=== PATIENT | female | born 1970 | race Caucasian/White ===

== ENCOUNTER 2017-08-22 10:59 | Day surgery (SDC) | payer OTHER ==
[2017-08-15 16:02] VITALS: BMI 48.6
[~2017-08-22 10:59] MED LIST: LACTATED RINGERS 1,000 ML IV ONE; LIDOCAINE 1% 20 ML VIAL (10MG/ML) FOR IV START INTRADERMA PRN
[2017-08-22 11:54] VITALS: TEMP 98.2
[2017-08-22] MEDS ORDERED: LIDOCAINE 1% INJ 10MG/ML (20 ML MDV) ONE (12:09)
[2017-08-22] MEDS ORDERED: PROPOFOL 10 MG/ML 20 ML VIAL IV ONE (12:09)
--- NOTE | 2017-08-22 12:11 | P.GSHP ---
History of Present Illness H&P Date: 08/22/17 Chief Complaint: History of colon cancer This is a 41-year-old female with a previous history of colon cancer. Patient had a partial colectomy approximately 7 years ago. Patient denies a significant GI complaints. She's had no rectal bleeding. Past Medical History Past Medical History: Cancer, Thyroid Disorder Additional Past Medical History / Comment(s): DX. AT AGE 39 WITH OVARIAN CANCER which progressed to colon and LEFT LUNG, Possible sleep apnea, colon polyps. History of Any Multi-Drug Resistant Organisms: None Reported Past Surgical History: Appendectomy, Bowel Resection, Tubal Ligation Additional Past Surgical History / Comment(s): BILATERAL CATARACTS, BILATERAL OOPHERECTOMY,LOWER LOBE LEFT LUNG REMOVED, COLONOSCOPY. Past Anesthesia/Blood Transfusion Reactions: No Reported Reaction Smoking Status: Former smoker - Past Family History Mother Family Medical History: Coronary Artery Disease (CAD), Diabetes Mellitus Medications and Allergies Home Medications Medication Instructions Recorded Confirmed Type Levothyroxine Sodium [Synthroid] 25 mcg PO DAILY 08/15/17 08/22/17 History Allergies Allergy/AdvReac Type Severity Reaction Status Date / Time No Known Allergies Allergy Verified 08/22/17 11:54 Surgical - Exam Vital Signs Temp Pulse Resp BP Pulse Ox 98.2 F 85 16 126/74 97 08/22/17 11:53 08/22/17 11:53 08/22/17 11:53 08/22/17 11:53 08/22/17 11:53 - General well developed, no distress - Eyes PERRL - ENT normal pinna, normal mucosa - Neck no masses - Respiratory normal expansion - Cardiovascular Rhythm: regular - Abdomen Abdomen: soft, non tender Assessment and Plan Assessment: History of colon cancer. We will perform colonoscopy.
--- NOTE | 2017-08-22 12:22 | P.OP ---
Date of Procedure: 08/22/17 Preoperative Diagnosis: History of colon cancer Postoperative Diagnosis: Internal hemorrhoids Normal colon status post low anterior resection Procedure(s) Performed: Colonoscopy Anesthesia: MAC Surgeon: Edison Blanco Pathology: none sent Condition: stable Disposition: PACU Description of Procedure: Patient's placed on the endoscopy table in the lateral position. She received IV sedation. Digital rectal exam was performed there were internal hemorrhoids noted. The flexible colonoscope was then placed patient anus and passed throughout the entire colon. The ileocecal valve was visualized. The cecum, ascending and transverse colon appeared normal. The scope was then brought back to the descending colon and this appeared normal. The patient a previous low anterior section. The colonic anastomosis was visualized. There is known to any tumor or stricture of the anastomotic site. The scope was then brought back the rectum and this appeared normal. Scope was withdrawn for patient. Internal hemorrhoids are noted at the anus again.
[2017-08-22 12:42] VITALS: RESP 16
[2017-08-22 12:58] VITALS: BP 136/80; PULSE 68
== END 2017-08-22 13:09 | disposition home or self-care (01) ==
LOC: ORWHC2ENDO 10:59
PROVIDERS: ATTEND Surgery
DX: Z12.11 Encounter for screening for malignant neoplasm of colon (principal); K64.8 Other hemorrhoids; E07.9 Disorder of thyroid, unspecified; G47.33 Obstructive sleep apnea (adult) (pediatric); E66.9 Obesity, unspecified; Z68.42 Body mass index [BMI] 45.0-49.9, adult; Z85.038 Personal history of other malignant neoplasm of large intestine; Z86.010 Personal history of colon polyps; Z85.43 Personal history of malignant neoplasm of ovary; Z85.118 Personal history of other malignant neoplasm of bronchus and lung; Z87.891 Personal history of nicotine dependence; Z79.899 Other long term (current) drug therapy; Z98.0 Intestinal bypass and anastomosis status; Z90.49 Acquired absence of other specified parts of digestive tract; Z90.722 Acquired absence of ovaries, bilateral; Z90.2 Acquired absence of lung [part of]; Z82.49 Family history of ischemic heart disease and other diseases of the circulatory system; Z83.3 Family history of diabetes mellitus
CPT/HCPCS: G0105; J2001; J2704; 45378

== ENCOUNTER → 2018-09-28 | Outpatient (CLI) | payer OTHER ==
--- NOTE | 2018-10-01 10:39 | MM ---
Reason for exam: screening (asymptomatic). Last mammogram was performed 1 year and 2 months ago. History: Patient is postmenopausal, has history of other cancer at age 41, has history of colon cancer at age 39, and is nulliparous. Family history of breast cancer in maternal aunt at age 45. Physical Findings: A clinical breast exam by your physician is recommended on an annual basis and results should be correlated with mammographic findings. MG 3D Screening Mammo W/Cad Bilateral CC and MLO view(s) were taken. Prior study comparison: July 31, 2017, bilateral MG screening mammo w CAD. January 03, 2015, bilateral MG diagnostic mammo w CAD [facility]A. There are scattered fibroglandular densities. There is no discrete abnormality. No significant changes when compared with prior studies. ASSESSMENT: Negative, BI-RAD 1 RECOMMENDATION: Routine screening mammogram of both breasts in 1 year.
== END | disposition home or self-care (01) ==
LOC: RADMAMWWP 07:32
PROVIDERS: ATTEND Family Medicine
DX: Z12.31 Encounter for screening mammogram for malignant neoplasm of breast (principal)
CPT/HCPCS: 77063; 77067

== ENCOUNTER 2019-02-01 20:45 | Emergency (ER) | payer OTHER ==
[2019-02-01 20:51] VITALS: RESP 16; TEMP 97.6
[2019-02-01] MEDS ORDERED: SODIUM CHLORIDE 0.9% 500 ML 500 ML IV STA (21:16)
--- NOTE | 2019-02-01 21:18 | ED ---
General Adult HPI - General Chief complaint: Dizziness Stated complaint: Prolonged Dizziness Time Seen by Provider: 02/01/19 20:53 Source: patient Mode of arrival: wheelchair Limitations: no limitations - History of Present Illness Initial comments: Dictation was produced using [employer] dictation software. please excuse any grammatical, word or spelling errors. Chief Complaint: 49-year-old female presents with postprandial dizziness. History of Present Illness: Patient is a 41-year-old female she presents today with 2 episodes of postprandial dizziness. Patient states last night she had some enchiladas felt dizzy. She went to bed woke up feeling well. Tonight she had the same meal was yesterday possibly to 3 hours prior to arrival. She states several minutes after finishing her meal she began feeling dizzy. States that if she feels like she was distended feels like she will pass out. Patient denies any abdominal symptoms. No vomiting. Denies any diarrhea. Denies any constitutional symptoms. The ROS documented in this emergency department record has been reviewed and confirmed by me. Those systems with pertinent positive or negative responses have been documented in the HPI. All other systems are other negative and/or noncontributory. PHYSICAL EXAM: General Impression: Alert and oriented x3, not in acute distress HEENT: Normocephalic atraumatic, extra-ocular movements intact, pupils equal and reactive to light bilaterally, mucous membranes moist. Cardiovascular: Heart regular rate and rhythm, S1&S2 audible, no murmurs, rubs or gallops Chest: Lungs clear to auscultation bilaterally, no rhonchi, no wheeze, no rales Abdomen: Bowel sounds present, abdomen soft, non-tender, non-distended, no organomegaly Musculoskeletal: Pulses present and equal in all extremities, no peripheral edema Motor: no focal deficits noted Neurological: CN II-XII grossly intact, no focal motor or sensory deficits noted Skin: Intact with no visualized rashes Psych: Normal affect and mood ED course: 49-year-old female presents chief complaint of dizziness. It appears to be followed by eating. As upon arrival are within acceptable limits. Laboratory evaluation obtained. Mild leukocytosis of 13.3 likely secondary to stress. Coag panel unremarkable. Metabolic panel is unremarkable. Cardiac enzymes negative. Urinalysis is negative. Patient given Zofran with improvement of symptoms. Patient states she is no longer dizzy after Zofran administration. Patient given by mouth Zofran to go home with. She is advised to follow-up with outpatient primary care physician for management and further evaluation of symptoms. Patient clear for discharge. She is given prescription for Zofran ODT. EKG interpretation: Ventricular rate 83, normal sinus rhythm, IA interval 162, care 76, QTC 432. No IA prolongation, no QTC prolongation, no ST or T-wave changes noted. Overall, this EKG is unremarkable - Related Data Home Medications Medication Instructions Recorded Confirmed Levothyroxine Sodium [Synthroid] 25 mcg PO DAILY 08/15/17 02/01/19 Escitalopram [Lexapro] 20 mg PO DAILY 02/01/19 02/01/19 [place]-3 Fatty Acids/Fish Oil [Fish 1 cap PO DAILY 02/01/19 02/01/19 Oil 1,000 mg Softgel] metFORMIN HCL [Glucophage] 500 mg PO BID 02/01/19 02/01/19 Previous Rx's Medication Instructions Recorded Ondansetron Odt [Zofran Odt] 4 mg PO Q8HR PRN #12 tab 02/01/19 Allergies Allergy/AdvReac Type Severity Reaction Status Date / Time No Known Allergies Allergy Verified 02/01/19 21:54 Review of Systems ROS Statement: Those systems with pertinent positive or pertinent negative responses have been documented in the HPI. ROS Other: All systems not noted in ROS Statement are negative. Past Medical History Past Medical History: Cancer, Diabetes Mellitus, Thyroid Disorder Additional Past Medical History / Comment(s): DX. AT AGE 39 WITH OVARIAN CANCER which progressed to colon and LEFT LUNG, Possible sleep apnea, colon polyps. History of Any Multi-Drug Resistant Organisms: None Reported Past Surgical History: Appendectomy, Bowel Resection, Tubal Ligation Additional Past Surgical History / Comment(s): BILATERAL CATARACTS, BILATERAL OOPHERECTOMY,LOWER LOBE LEFT LUNG REMOVED, COLONOSCOPY. Past Anesthesia/Blood Transfusion Reactions: No Reported Reaction Past Psychological History: No Psychological Hx Reported Smoking Status: Former smoker Past Alcohol Use History: None Reported Past Drug Use History: None Reported - Past Family History Mother Family Medical History: Coronary Artery Disease (CAD), Diabetes Mellitus General Exam Limitations: no limitations Course Vital Signs 02/01/19 02/01/19 02/01/19 20:46 22:06 22:50 Temperature 97.6 F Pulse Rate 84 89 81 Respiratory 16 16 16 Rate Blood Pressure 135/92 137/89 137/89 O2 Sat by Pulse 97 95 95 Oximetry Medical Decision Making - Lab Data Result diagrams: 02/01/19 21:38 02/01/19 21:38 Lab Results 02/01/19 02/01/19 02/01/19 Range/Units 21:38 21:38 21:38 WBC 13.3 H (3.8-10.6) k/uL RBC 4.74 (3.80-5.40) m/uL Hgb 13.4 (11.4-16.0) gm/dL Hct 40.7 (34.0-46.0) % MCV 86.0 (80.0-100.0) fL MCH 28.3 (25.0-35.0) pg MCHC 32.9 (31.0-37.0) g/dL RDW 13.7 (11.5-15.5) % Plt Count 326 (150-450) k/uL Neutrophils % 68 % Lymphocytes % 25 % Monocytes % 4 % Eosinophils % 1 % Basophils % 1 % Neutrophils # 9.0 H (1.3-7.7) k/uL Lymphocytes # 3.3 (1.0-4.8) k/uL Monocytes # 0.6 (0-1.0) k/uL Eosinophils # 0.2 (0-0.7) k/uL Basophils # 0.1 (0-0.2) k/uL PT 9.7 (9.0-12.0) sec INR 0.9 (<1.2) Sodium 139 (137-145) mmol/L Potassium 4.4 (3.5-5.1) mmol/L Chloride 102 (98-107) mmol/L Carbon Dioxide 27 (22-30) mmol/L Anion Gap 10 mmol/L BUN 20 H (7-17) mg/dL Creatinine 1.47 H (0.52-1.04) mg/dL Est GFR (CKD-EPI)AfAm 48 (>60 ml/min/1.73 sqM) Est GFR (CKD-EPI)NonAf 42 (>60 ml/min/1.73 sqM) Glucose 109 H (74-99) mg/dL Calcium 10.0 (8.4-10.2) mg/dL Total Bilirubin 0.4 (0.2-1.3) mg/dL AST 28 (14-36) U/L ALT 35 (9-52) U/L Alkaline Phosphatase 100 (38-126) U/L Troponin I (0.000-0.034) ng/mL Total Protein 7.5 (6.3-8.2) g/dL Albumin 4.6 (3.5-5.0) g/dL Urine Color Urine Appearance (Clear) Urine pH (5.0-8.0) Ur Specific [place] (1.001-1.035) Urine Protein (Negative) Urine Glucose (UA) (Negative) Urine Ketones (Negative) Urine Blood (Negative) Urine Nitrite (Negative) Urine Bilirubin (Negative) Urine Urobilinogen (<2.0) mg/dL Ur Leukocyte Esterase (Negative) 02/01/19 02/01/19 Range/Units 21:38 22:05 WBC (3.8-10.6) k/uL RBC (3.80-5.40) m/uL Hgb (11.4-16.0) gm/dL Hct (34.0-46.0) % MCV (80.0-100.0) fL MCH (25.0-35.0) pg MCHC (31.0-37.0) g/dL RDW (11.5-15.5) % Plt Count (150-450) k/uL Neutrophils % % Lymphocytes % % Monocytes % % Eosinophils % % Basophils % % Neutrophils # (1.3-7.7) k/uL Lymphocytes # (1.0-4.8) k/uL Monocytes # (0-1.0) k/uL Eosinophils # (0-0.7) k/uL Basophils # (0-0.2) k/uL PT (9.0-12.0) sec INR (<1.2) Sodium (137-145) mmol/L Potassium (3.5-5.1) mmol/L Chloride (98-107) mmol/L Carbon Dioxide (22-30) mmol/L Anion Gap mmol/L BUN (7-17) mg/dL Creatinine (0.52-1.04) mg/dL Est GFR (CKD-EPI)AfAm (>60 ml/min/1.73 sqM) Est GFR (CKD-EPI)NonAf (>60 ml/min/1.73 sqM) Glucose (74-99) mg/dL Calcium (8.4-10.2) mg/dL Total Bilirubin (0.2-1.3) mg/dL AST (14-36) U/L ALT (9-52) U/L Alkaline Phosphatase (38-126) U/L Troponin I <0.012 (0.000-0.034) ng/mL Total Protein (6.3-8.2) g/dL Albumin (3.5-5.0) g/dL Urine Color Light Yellow Urine Appearance Clear (Clear) Urine pH 5.5 (5.0-8.0) Ur Specific [place] 1.010 (1.001-1.035) Urine Protein Negative (Negative) Urine Glucose (UA) Negative (Negative) Urine Ketones Negative (Negative) Urine Blood Negative (Negative) Urine Nitrite Negative (Negative) Urine Bilirubin Negative (Negative) Urine Urobilinogen <2.0 (<2.0) mg/dL Ur Leukocyte Esterase Negative (Negative) Disposition Clinical Impression: Dizziness Disposition: HOME SELF-CARE Condition: Good Instructions (If sedation given, give patient instructions): Dizziness (ED) Prescriptions: Ondansetron Odt [Zofran Odt] 4 mg PO Q8HR PRN #12 tab PRN Reason: Nausea Is patient prescribed a controlled substance at d/c from ED?: No Referrals: Jesse Baker DO [Primary Care Provider] - 1-2 days Time of Disposition: 23:32
[2019-02-01 21:51] LABS: Basophils # (A) 0.1 k/uL (0-0.2); Basophils % (A) 1 %; Eosinophils # (A) 0.2 k/uL (0-0.7); Eosinophils % (A) 1 %; HCT 40.7 % (34.0-46.0); HGB 13.4 gm/dL (11.4-16.0); Lymphocytes # (A) 3.3 k/uL (1.0-4.8); Lymphocytes % (A) 25 %; MCH 28.3 pg (25.0-35.0); MCHC 32.9 g/dL (31.0-37.0); Mean Platelet Volume 6.8; Monocytes # (A) 0.6 k/uL (0-1.0); Monocytes % (A) 4 %; Neutrophils % (A) 68 %; Platelet Count 326 k/uL (150-450); RBC 4.74 m/uL (3.80-5.40); RDW 13.7 % (11.5-15.5); WBC 13.3 k/uL (3.8-10.6)
[2019-02-01 21:58] LABS: Albumin 4.6 g/dL (3.5-5.0); Potassium 4.4 mmol/L (3.5-5.1); Total Bilirubin 0.4 mg/dL (0.2-1.3); Total Protein 7.5 g/dL (6.3-8.2)
[2019-02-01] MEDS: ONDANSETRON 4 MG/2 ML VIAL IVP STA ×2 (22:04→22:49)
[2019-02-01 22:11] LABS: INR 0.9 (<1.2); Prothrombin Time 9.7 sec (9.0-12.0)
[2019-02-01 22:12] LABS: Appearance,Urine Clear (Clear); Bilirubin,Urine Negative (Negative); Blood,Urine Negative (Negative); Color,Urine Light Yellow; Glucose,Urine (UA) Negative (Negative); Ketones,Urine Negative (Negative); Leukocyte Esterase,Urine Negative (Negative); Nitrite,Urine Negative (Negative); PH, Urine 5.5 (5.0-8.0); Protein,Urine Negative (Negative); Urobilinogen,Urine <2.0 mg/dL (<2.0)
[2019-02-01 23:48] VITALS: BP 126/91; PULSE 83
== END 2019-02-01 23:49 | disposition home or self-care (01) ==
LOC: EC 20:45
DX: D72.829 Elevated white blood cell count, unspecified (principal); E11.9 Type 2 diabetes mellitus without complications; E07.9 Disorder of thyroid, unspecified; Z85.43 Personal history of malignant neoplasm of ovary; Z87.891 Personal history of nicotine dependence; Z79.890 Hormone replacement therapy; Z79.84 Long term (current) use of oral hypoglycemic drugs; Z79.899 Other long term (current) drug therapy
CPT/HCPCS: 36415; 93005; 80053; 84484; 85025; 85610; 81003; 99284; 96374; 96361; J2405

== ENCOUNTER → 2019-03-11 | Outpatient (CLI) | payer OTHER ==
--- NOTE | 2019-03-11 13:24 | XR ---
EXAMINATION TYPE: XR chest 2V DATE OF EXAM: 03/11/2019 COMPARISON: 06/24/2013 INDICATION: Cough R05 TECHNIQUE: Frontal and lateral views of the chest are obtained. FINDINGS: The heart size is normal. The pulmonary vasculature is normal. The lungs are clear. IMPRESSION: 1. No acute pulmonary process.
== END | disposition home or self-care (01) ==
LOC: RADXRMAIN 09:21
PROVIDERS: ATTEND Family Medicine
DX: R05 Cough (principal)
CPT/HCPCS: 71046

== ENCOUNTER 2019-10-15 11:20 | Emergency (ER) | payer OTHER ==
[2019-10-15] MEDS ORDERED: KETOROLAC 30 MG/ML 1 ML VIAL IVP STA (11:55)
[2019-10-15] MEDS ORDERED: SODIUM CHLORIDE 0.9% 500 ML 500 ML IV STA (11:55)
--- NOTE | 2019-10-15 12:01 | ED ---
General Adult HPI - General Chief complaint: Back Pain/Injury Stated complaint: back pain Time Seen by Provider: 10/15/19 11:42 Source: patient, RN notes reviewed Mode of arrival: ambulatory Limitations: no limitations - History of Present Illness Initial comments: Patient is a pleasant 49-year-old female presenting to the emergency Department with complaints of low back pain. Onset of symptoms was yesterday around 4 PM while sitting at her desk. Onset was sudden. Discomfort is left lower back. Discomfort does not radiate. No abdominal discomfort. Minimal nausea. Patient states discomfort is positional and discomfort greatly increases with position changes. No history of similar symptoms previously. No constipation or diarrhea. No fevers. Patient did try Aleve and muscle relaxer without much improvement of symptoms. - Related Data Home Medications Medication Instructions Recorded Confirmed Levothyroxine Sodium [Synthroid] 25 mcg PO DAILY 08/15/17 02/01/19 Escitalopram [Lexapro] 20 mg PO DAILY 02/01/19 02/01/19 [place]-3 Fatty Acids/Fish Oil [Fish 1 cap PO DAILY 02/01/19 02/01/19 Oil 1,000 mg Softgel] metFORMIN HCL [Glucophage] 500 mg PO BID 02/01/19 02/01/19 Previous Rx's Medication Instructions Recorded Ondansetron Odt [Zofran Odt] 4 mg PO Q8HR PRN #12 tab 02/01/19 predniSONE 20 mg PO BID #10 tab 10/15/19 Allergies Allergy/AdvReac Type Severity Reaction Status Date / Time No Known Allergies Allergy Verified 02/01/19 21:54 Review of Systems ROS Statement: Those systems with pertinent positive or pertinent negative responses have been documented in the HPI. ROS Other: All systems not noted in ROS Statement are negative. Constitutional: Denies: fever Eyes: Denies: eye pain ENT: Denies: ear pain Respiratory: Denies: cough Cardiovascular: Denies: chest pain Endocrine: Denies: fatigue Gastrointestinal: Reports: nausea. Denies: abdominal pain, vomiting Genitourinary: Denies: dysuria Musculoskeletal: Reports: as per HPI, back pain Skin: Denies: rash Neurological: Denies: weakness Past Medical History Past Medical History: Cancer, Diabetes Mellitus, Thyroid Disorder Additional Past Medical History / Comment(s): DX. AT AGE 39 WITH OVARIAN CANCER which progressed to colon and LEFT LUNG, Possible sleep apnea, colon polyps. History of Any Multi-Drug Resistant Organisms: None Reported Past Surgical History: Appendectomy, Bowel Resection, Tubal Ligation Additional Past Surgical History / Comment(s): BILATERAL CATARACTS, BILATERAL OOPHERECTOMY,LOWER LOBE LEFT LUNG REMOVED, COLONOSCOPY. Past Anesthesia/Blood Transfusion Reactions: No Reported Reaction Past Psychological History: No Psychological Hx Reported Smoking Status: Former smoker Past Alcohol Use History: None Reported Past Drug Use History: None Reported - Past Family History Mother Family Medical History: Coronary Artery Disease (CAD), Diabetes Mellitus General Exam Limitations: no limitations General appearance: alert, in no apparent distress Head exam: Present: normocephalic Eye exam: Present: normal appearance Neck exam: Present: normal inspection. Absent: tenderness Respiratory exam: Present: normal lung sounds bilaterally Cardiovascular Exam: Present: regular rate, normal rhythm Expanded Peripheral pulses: 2+: Radial (R), Radial (L), Femoral (R), Femoral (L), Posterior Tibialis (R), Posterior Tibialis (L), Dorsalis Pedis (R), Dorsalis Pedis (L) GI/Abdominal exam: Present: soft, normal bowel sounds. Absent: distended, tenderness, guarding, rebound, rigid, pulsatile mass Extremities exam: Present: normal inspection, other (Straight leg raise positive on the right at 30. State leg raise positive on the left with toe flexion around 60.) Back exam: Present: tenderness (Left paraLumbar region approximately L2-L3) Neurological exam: Present: alert. Absent: motor sensory deficit Expanded Sensory exam: Lower Extremity Light Touch: Normal Motor strength exam: RLE: 5, LLE: 5 Psychiatric exam: Present: normal affect, normal mood Skin exam: Present: normal color Course Vital Signs 10/15/19 10/15/19 11:26 12:11 Temperature 97.8 F Pulse Rate 85 68 Respiratory 18 18 Rate Blood Pressure 135/111 144/83 O2 Sat by Pulse 97 97 Oximetry Medical Decision Making - Medical Decision Making Patient reevaluated and feeling much better. Patient updated on results and need for follow-up. - Lab Data Result diagrams: 10/15/19 11:50 10/15/19 11:50 Lab Results 10/15/19 10/15/19 10/15/19 Range/Units 11:50 11:50 13:25 WBC 9.6 (3.8-10.6) k/uL RBC 4.65 (3.80-5.40) m/uL Hgb 13.6 (11.4-16.0) gm/dL Hct 40.6 (34.0-46.0) % MCV 87.2 (80.0-100.0) fL MCH 29.2 (25.0-35.0) pg MCHC 33.5 (31.0-37.0) g/dL RDW 14.3 (11.5-15.5) % Plt Count 333 (150-450) k/uL Neutrophils % 70 % Lymphocytes % 21 % Monocytes % 4 % Eosinophils % 2 % Basophils % 1 % Neutrophils # 6.7 (1.3-7.7) k/uL Lymphocytes # 2.1 (1.0-4.8) k/uL Monocytes # 0.4 (0-1.0) k/uL Eosinophils # 0.1 (0-0.7) k/uL Basophils # 0.1 (0-0.2) k/uL Sodium 139 (137-145) mmol/L Potassium 4.7 (3.5-5.1) mmol/L Chloride 104 (98-107) mmol/L Carbon Dioxide 26 (22-30) mmol/L Anion Gap 9 mmol/L BUN 18 H (7-17) mg/dL Creatinine 0.66 (0.52-1.04) mg/dL Est GFR (CKD-EPI)AfAm >90 (>60 ml/min/1.73 sqM) Est GFR (CKD-EPI)NonAf >90 (>60 ml/min/1.73 sqM) Glucose 161 H (74-99) mg/dL Calcium 9.5 (8.4-10.2) mg/dL Total Bilirubin 0.5 (0.2-1.3) mg/dL AST 41 H (14-36) U/L ALT 39 H (4-34) U/L Alkaline Phosphatase 103 (38-126) U/L Total Protein 7.3 (6.3-8.2) g/dL Albumin 4.3 (3.5-5.0) g/dL Amylase 63 (30-110) U/L Lipase 382 H (23-300) U/L Urine Color Yellow Urine Appearance Clear (Clear) Urine pH 6.0 (5.0-8.0) Ur Specific [place] 1.021 (1.001-1.035) Urine Protein Negative (Negative) Urine Glucose (UA) Negative (Negative) Urine Ketones Negative (Negative) Urine Blood Negative (Negative) Urine Nitrite Negative (Negative) Urine Bilirubin Negative (Negative) Urine Urobilinogen <2.0 (<2.0) mg/dL Ur Leukocyte Esterase Negative (Negative) - Radiology Data Radiology results: report reviewed (Ultrasound shows normal aorta), image reviewed (Lumbar spine x-ray shows normal lumbar spine. Cholelithiasis.) Disposition Clinical Impression: Low back pain Disposition: HOME SELF-CARE Condition: Stable Instructions (If sedation given, give patient instructions): Acute Low Back Pain (ED) Additional Instructions: Please follow-up with primary care physician in the next couple days for recheck. Return for weakness, loss of control of bowel or bladder, worsening s ymptoms or other concerns. Prescription sent to [email or web address] pharmacy Prescriptions: predniSONE 20 mg PO BID #10 tab Is patient prescribed a controlled substance at d/c from ED?: No Referrals: Jesse Baker DO [Primary Care Provider] - 1-2 days Time of Disposition: 14:25
[2019-10-15 12:18] LABS: Basophils # (A) 0.1 k/uL (0-0.2); Basophils % (A) 1 %; Eosinophils # (A) 0.1 k/uL (0-0.7); Eosinophils % (A) 2 %; HCT 40.6 % (34.0-46.0); HGB 13.6 gm/dL (11.4-16.0); Lymphocytes # (A) 2.1 k/uL (1.0-4.8); Lymphocytes % (A) 21 %; MCH 29.2 pg (25.0-35.0); MCHC 33.5 g/dL (31.0-37.0); MCV 87.2 fL (80.0-100.0); Mean Platelet Volume 9.3; Monocytes # (A) 0.4 k/uL (0-1.0); Monocytes % (A) 4 %; Neutrophils # (A) 6.7 k/uL (1.3-7.7); Neutrophils % (A) 70 %; Platelet Count 333 k/uL (150-450); RBC 4.65 m/uL (3.80-5.40); RDW 14.3 % (11.5-15.5); WBC 9.6 k/uL (3.8-10.6)
[2019-10-15 12:30] LABS: ALT 39 U/L (4-34); AST 41 U/L (14-36); African American GFR (CKD) >90 (>60 ml/min/1.73 sqM); Albumin 4.3 g/dL (3.5-5.0); Alkaline Phosphatase 103 U/L (38-126); Amylase 63 U/L (30-110); Anion Gap 9 mmol/L; Blood Urea Nitrogen 18 mg/dL (7-17); Calcium 9.5 mg/dL (8.4-10.2); Carbon Dioxide 26 mmol/L (22-30); Chloride 104 mmol/L (98-107); Glucose 161 mg/dL (74-99); Non-African American GFR(CKD) >90 (>60 ml/min/1.73 sqM); Potassium 4.7 mmol/L (3.5-5.1); Sodium 139 mmol/L (137-145); Total Bilirubin 0.5 mg/dL (0.2-1.3); Total Protein 7.3 g/dL (6.3-8.2)
[2019-10-15] MEDS ORDERED: HYDROmorphone 1 MG/ML 1 ML SYRINGE IVP STA (12:41)
--- NOTE | 2019-10-15 12:53 | XR ---
EXAMINATION TYPE: XR lumbosacral spine min 4V DATE OF EXAM: 10/15/2019 COMPARISON: None HISTORY: Low back pain TECHNIQUE: Five-view lumbar spine FINDINGS: Incidental note is made of cholelithiasis. There 5 lumbar-type vertebral bodies. Pedicles are intact. Disc heights are preserved. Vertebral body heights are preserved. Alignment is normal. No spondylolytic defects are evident. IMPRESSION: 1. Normal lumbar spine. 2. Cholelithiasis
--- NOTE | 2019-10-15 13:14 | US ---
EXAMINATION TYPE: US duplex aorta DATE OF EXAM: 10/15/2019 COMPARISON: NONE CLINICAL HISTORY: Low back pain, evaluate aorta. pain EXAM MEASUREMENTS: Abdominal Aorta: Proximal: 1.9 cm Mid: 1.6 cm Distal: 1.5 cm Bifurcation: Obscured by bowel gas. IMPRESSION: 1. Abdominal aorta appears unremarkable as visualized.
[2019-10-15 14:08] LABS: Appearance,Urine Clear (Clear); Bilirubin,Urine Negative (Negative); Blood,Urine Negative (Negative); Color,Urine Yellow; Glucose,Urine (UA) Negative (Negative); Ketones,Urine Negative (Negative); Leukocyte Esterase,Urine Negative (Negative); Nitrite,Urine Negative (Negative); Protein,Urine Negative (Negative); Specific Gravity,Urine 1.021 (1.001-1.035); Urobilinogen,Urine <2.0 mg/dL (<2.0)
[2019-10-15] MEDS ORDERED: ACET/COD 300 MG/30 MG STARTER PACK 6 TAB BTL PO STA (14:25)
[2019-10-15 14:29] VITALS: BP 140/82; PULSE 63; RESP 20; TEMP 98.6
== END 2019-10-15 14:42 | disposition home or self-care (01) ==
LOC: EC 11:20
DX: M54.5 Low back pain (principal); E11.9 Type 2 diabetes mellitus without complications; E07.9 Disorder of thyroid, unspecified; Z85.43 Personal history of malignant neoplasm of ovary; Z87.891 Personal history of nicotine dependence; Z79.890 Hormone replacement therapy; Z79.84 Long term (current) use of oral hypoglycemic drugs; Z79.899 Other long term (current) drug therapy
CPT/HCPCS: 36415; 80053; 82150; 83690; 85025; 81003; 72110; 93979; 99284; 96374; 96375; 96361; J1885; J1170

== ENCOUNTER 2019-10-19 01:06 | Emergency (ER) | payer OTHER ==
[2019-10-19 01:26] VITALS: TEMP 97.9
[2019-10-19] MEDS ORDERED: HYDROmorphone 0.5 MG/0.5 ML SYRINGE IVP STA (03:14)
[2019-10-19] MEDS ORDERED: SODIUM CHLORIDE 0.9% 500 ML 500 ML IV STA (03:14)
[2019-10-19 03:41] LABS: Basophils # (A) 0.1 k/uL (0-0.2); Basophils % (A) 0 %; Eosinophils # (A) 0.1 k/uL (0-0.7); Eosinophils % (A) 1 %; HGB 13.6 gm/dL (11.4-16.0); Lymphocytes # (A) 1.8 k/uL (1.0-4.8); Lymphocytes % (A) 9 %; MCH 27.8 pg (25.0-35.0); MCHC 32.2 g/dL (31.0-37.0); MCV 86.2 fL (80.0-100.0); Mean Platelet Volume 7.5; Monocytes % (A) 5 %; Neutrophils # (A) 16.3 k/uL (1.3-7.7); Neutrophils % (A) 84 %; Platelet Count 327 k/uL (150-450); RBC 4.88 m/uL (3.80-5.40); WBC 19.4 k/uL (3.8-10.6)
[2019-10-19 04:02] LABS: Appearance,Urine Clear (Clear); Bilirubin,Urine Negative (Negative); Blood,Urine Negative (Negative); Color,Urine Yellow; Glucose,Urine (UA) 3+ (Negative); Ketones,Urine Negative (Negative); Leukocyte Esterase,Urine Negative (Negative); Nitrite,Urine Negative (Negative); Protein,Urine Negative (Negative); Specific Gravity,Urine 1.029 (1.001-1.035); Urobilinogen,Urine <2.0 mg/dL (<2.0)
[2019-10-19 04:02] LABS: ALT 37 U/L (4-34); AST 30 U/L (14-36); African American GFR (CKD) >90 (>60 ml/min/1.73 sqM); Albumin 4.4 g/dL (3.5-5.0); Alkaline Phosphatase 104 U/L (38-126); Anion Gap 9 mmol/L; Blood Urea Nitrogen 25 mg/dL (7-17); Calcium 9.9 mg/dL (8.4-10.2); Carbon Dioxide 26 mmol/L (22-30); Chloride 103 mmol/L (98-107); Glucose 271 mg/dL (74-99); Non-African American GFR(CKD) >90 (>60 ml/min/1.73 sqM); Potassium 4.3 mmol/L (3.5-5.1); Sodium 138 mmol/L (137-145); Total Bilirubin 0.4 mg/dL (0.2-1.3); Total Protein 7.5 g/dL (6.3-8.2)
--- NOTE | 2019-10-19 04:09 | CT ---
EXAMINATION TYPE: CT abdomen pelvis wo con DATE OF EXAM: 10/19/2019 COMPARISON: 11/04/2013 HISTORY: Patient presents with left sided flank pain. CT DLP: 1870 mGycm Automated exposure control for dose reduction was used. Multiple axial sections were obtained from the diaphragm to the floor the pelvis with no contrast. Lung bases are clear of consolidation. There is mild subsegmental atelectasis left lung base. There i s no pericardial effusion. Heart size is normal. There is no pleural effusion. There is diffuse fatty infiltration of the liver. Liver is enlarged and measures 21.5 cm. Spleen is i ntact. There is no pancreatic mass. There is contracted gallbladder with 3 cm calcified gallstone. Bile ducts are not dilated. There is no adrenal mass. Kidneys have normal size. There is no hydroneph rosis. There is no retroperitoneal adenopathy. Bladder distends smoothly. There is no inguinal hernia . There is no free fluid in the pelvis. There is no evidence of a pelvic mass. Lumbar spine is intact . There is T11-12 posterior disc herniation with calcification. Bony pelvis is intact. There is appar ent surgery at the proximal sigmoid colon. Appendix is not definitely seen. There is no sign of thick ened appendix. There is no evidence of a bowel obstruction. There is no mesenteric edema. There is no ascites. IMPRESSION: Fatty infiltration of the liver. Large calcified gallstone increased in size compared to old CT scan. No sign of acute abdomen and pelvis. No renal stone or obstruction.
[2019-10-19] MEDS ORDERED: KETOROLAC 30 MG/ML 1 ML VIAL IVP STA (04:26)
[2019-10-19] MEDS ORDERED: DIAZEPAM 2 MG TAB PO STA (04:28)
[2019-10-19] MEDS ORDERED: DIAZEPAM 5 MG/ML 2 ML INJ IVP STA (04:37)
--- NOTE | 2019-10-19 04:38 | ED ---
General Adult HPI - General Chief complaint: Back Pain/Injury Stated complaint: Back Injury Time Seen by Provider: 10/19/19 02:51 Source: patient, RN notes reviewed, old records reviewed Mode of arrival: ambulatory Limitations: no limitations - History of Present Illness Initial comments: 49-year-old female patient presents to the chief complaint of left paralumbar back/flank pain. Patient reports that this initially started 4 days ago. She was seen in this emergency department where she had plain films and aortic ultrasounds are negative. Patient was discharged with steroids. Patient was pain initially started 4 days ago is at rest. Left paralumbar region. Patient reports that after discharge the pain improved somewhat. Patient reports that today she was standing on her feet all day. She sat down use the bathroom. The pain suddenly came back and. Lower. Patient reports that is her left lateral paralumbar region. Denies any history of kidney stones. Denies any reflux symptoms. Ambulatory without difficulty. Denies any paresthesias. Denies any saddle anesthesia or loss of bowel or bladder control. Systemic: Pt denies fatigue, fever/chills, rash. Pt denies weakness, night sweats, weight loss. Neuro: Pt denies headache, visual disturbances, syncope or pre-syncope. HEENT: Pt denies ocular discharge or irritation, otalgia, rhinorrhea, pharyngitis or notable lymphadenopathy. Cardiopulmonary: Pt denies chest pain, SOB, heart palpitations, dyspnea on exertion. Abdominal/GI: Pt denies abdominal pain, n/v/d. : Pt denies dysuria, burning w/ urination, frequency/urgency. Denies new onset urinary or bowel incontinence. MSK: Pt denies myalgia, loss of strength or function in extremities. Neuro: Pt denies new onset weakness, paresthesias. - Related Data Home Medications Medication Instructions Recorded Confirmed Levothyroxine Sodium [Synthroid] 25 mcg PO DAILY 08/15/17 02/01/19 Escitalopram [Lexapro] 20 mg PO DAILY 02/01/19 02/01/19 [place]-3 Fatty Acids/Fish Oil [Fish 1 cap PO DAILY 02/01/19 02/01/19 Oil 1,000 mg Softgel] metFORMIN HCL [Glucophage] 500 mg PO BID 02/01/19 02/01/19 Previous Rx's Medication Instructions Recorded Ondansetron Odt [Zofran Odt] 4 mg PO Q8HR PRN #12 tab 02/01/19 predniSONE 20 mg PO BID #10 tab 10/15/19 Cyclobenzaprine [Flexeril] 1 - 2 tab PO TID #20 tablet 10/19/19 Allergies Allergy/AdvReac Type Severity Reaction Status Date / Time No Known Allergies Allergy Verified 10/19/19 01:26 Review of Systems ROS Statement: Those systems with pertinent positive or pertinent negative responses have been documented in the HPI. ROS Other: All systems not noted in ROS Statement are negative. Past Medical History Past Medical History: Cancer, Diabetes Mellitus, Thyroid Disorder Additional Past Medical History / Comment(s): DX. AT AGE 39 WITH OVARIAN CANCER which progressed to colon and LEFT LUNG, Possible sleep apnea, colon polyps. History of Any Multi-Drug Resistant Organisms: None Reported Past Surgical History: Appendectomy, Bowel Resection, Tubal Ligation Additional Past Surgical History / Comment(s): BILATERAL CATARACTS, BILATERAL OOPHERECTOMY,LOWER LOBE LEFT LUNG REMOVED, COLONOSCOPY. Past Anesthesia/Blood Transfusion Reactions: No Reported Reaction Past Psychological History: No Psychological Hx Reported Smoking Status: Former smoker Past Alcohol Use History: None Reported Past Drug Use History: None Reported - Past Family History Mother Family Medical History: Coronary Artery Disease (CAD), Diabetes Mellitus General Exam - General Exam Comments Initial Comments: Constitutional: NAD, AOX3, Pt has pleasant affect. HEENT: NC/AT, trachea midline, neck supple, no lymphadenopathy. Posterior pharynx non erythematous, without exudates. External ears appear normal, without discharge. Mucous membranes moist. Eyes PERRLA, EOM intact. There is no scleral icterus. No pallor noted. Cardiopulmonary: RRR, no murmurs, rubs or gallops, no JVD noted. Lungs CTAB in anterior and posterior hirsch. No peripheral edema. Abdominal exam: Abdomen soft and non-distended. Abdomen non-tender to palpation in all 4 quadrants. Bowel sounds active in LLQ. No hepatosplenomegaly. No ecchymosis Neuro: CN II-XII grossly intact. No nuchal rigidity. No raccon eyes, no ignacio sign, no hemotympanum. No cervical spinal tenderness. MSK: Left paralumbar/lateral paralumbar region tender to palpation. Straight leg raise is negative. Heel to toe walking is intact. Sensation is intact. Lower extremity strength 5 out of 5. No posterior calf tenderness bilaterally, homans sign negative bilaterally. Posterior tibialis and radial pulse +2 bilaterally. Sensation intact in upper and lower extremities. Full active ROM in upper and lower extremities, 5/5 stregnth. Limitations: no limitations Course Vital Signs 10/19/19 01:24 Temperature 97.9 F Pulse Rate 89 Respiratory 20 Rate Blood Pressure 168/96 O2 Sat by Pulse 98 Oximetry Medical Decision Making - Medical Decision Making 49-year-old female patient presents to the chief complaint of paralumbar back pain. Ongoing for 4 days. Got worse today after urinating. Appears lower this time now per patient. Patient vital signs: Mild hypertension. Physical exam displayed: eft paralumbar/lateral paralumbar region tender to palpation. Straight leg raise is negative. Heel to toe walking is intact. Sensation is intact. Lower extremity strength 5 out of 5. Patient reports that she is unable to become comfortable. I did initially of high suspicion of kidney stone for this patient. Laboratory investigations were conducted which displayed a leukocytosis likely secondary to recent steroid usage. Glucose of 271. Urine displayed + glucose. A CT abdomen and pelvis without contrast was obtained for suspicion of ureteral calculi. This displayed that he filtration the liver. Large calcific also increased in size compared to old computed tomography scan. No psychiatric and pelvis, no renal stone obstruction. Did display a T11/T12 posterior disc herniation. I believe the patient is experiencing paralumbar back strain. Patient was discharged with outpatient primary care follow-up as well as orthopedic follow-up. Patient will continue to use steroids as directed from previous visit as well as anti-inflammatories muscle relaxers as needed. Will return to ER if condition worsens. Case discussed with Dr. Louie. - Lab Data Result diagrams: 10/19/19 03:29 10/19/19 03:29 Lab Results 10/19/19 10/19/19 10/19/19 Range/Units 03:23 03:29 03:29 WBC 19.4 H (3.8-10.6) k/uL RBC 4.88 (3.80-5.40) m/uL Hgb 13.6 (11.4-16.0) gm/dL Hct 42.0 (34.0-46.0) % MCV 86.2 (80.0-100.0) fL MCH 27.8 (25.0-35.0) pg MCHC 32.2 (31.0-37.0) g/dL RDW 13.0 (11.5-15.5) % Plt Count 327 (150-450) k/uL Neutrophils % 84 % Lymphocytes % 9 % Monocytes % 5 % Eosinophils % 1 % Basophils % 0 % Neutrophils # 16.3 H (1.3-7.7) k/uL Lymphocytes # 1.8 (1.0-4.8) k/uL Monocytes # 1.0 (0-1.0) k/uL Eosinophils # 0.1 (0-0.7) k/uL Basophils # 0.1 (0-0.2) k/uL Sodium 138 (137-145) mmol/L Potassium 4.3 (3.5-5.1) mmol/L Chloride 103 (98-107) mmol/L Carbon Dioxide 26 (22-30) mmol/L Anion Gap 9 mmol/L BUN 25 H (7-17) mg/dL Creatinine 0.69 (0.52-1.04) mg/dL Est GFR (CKD-EPI)AfAm >90 (>60 ml/min/1.73 sqM) Est GFR (CKD-EPI)NonAf >90 (>60 ml/min/1.73 sqM) Glucose 271 H (74-99) mg/dL Calcium 9.9 (8.4-10.2) mg/dL Total Bilirubin 0.4 (0.2-1.3) mg/dL AST 30 (14-36) U/L ALT 37 H (4-34) U/L Alkaline Phosphatase 104 (38-126) U/L Total Protein 7.5 (6.3-8.2) g/dL Albumin 4.4 (3.5-5.0) g/dL Urine Color Yellow Urine Appearance Clear (Clear) Urine pH 6.0 (5.0-8.0) Ur Specific [place] 1.029 (1.001-1.035) Urine Protein Negative (Negative) Urine Glucose (UA) 3+ H (Negative) Urine Ketones Negative (Negative) Urine Blood Negative (Negative) Urine Nitrite Negative (Negative) Urine Bilirubin Negative (Negative) Urine Urobilinogen <2.0 (<2.0) mg/dL Ur Leukocyte Esterase Negative (Negative) Disposition Clinical Impression: Lumbar back pain Disposition: HOME SELF-CARE Condition: Stable Instructions (If sedation given, give patient instructions): Acute Low Back Pain (ED) Additional Instructions: Follow-up with primary care provider and orthopedic consult tomorrow. Use muscle relaxers and anti-inflammatories as needed for discomfort. Return to ER if condition worsens in any way. Prescriptions: Cyclobenzaprine [Flexeril] 1 - 2 tab PO TID #20 tablet Is patient prescribed a controlled substance at d/c from ED?: No Referrals: Jesse Baker DO [Primary Care Provider] - 1-2 days
--- NOTE | 2019-10-19 04:49 | ED ---
Medical Decision Making - Lab Data Result diagrams: 10/19/19 03:29 10/19/19 03:29 Lab Results 10/19/19 10/19/19 10/19/19 Range/Units 03:23 03:29 03:29 WBC 19.4 H (3.8-10.6) k/uL RBC 4.88 (3.80-5.40) m/uL Hgb 13.6 (11.4-16.0) gm/dL Hct 42.0 (34.0-46.0) % MCV 86.2 (80.0-100.0) fL MCH 27.8 (25.0-35.0) pg MCHC 32.2 (31.0-37.0) g/dL RDW 13.0 (11.5-15.5) % Plt Count 327 (150-450) k/uL Neutrophils % 84 % Lymphocytes % 9 % Monocytes % 5 % Eosinophils % 1 % Basophils % 0 % Neutrophils # 16.3 H (1.3-7.7) k/uL Lymphocytes # 1.8 (1.0-4.8) k/uL Monocytes # 1.0 (0-1.0) k/uL Eosinophils # 0.1 (0-0.7) k/uL Basophils # 0.1 (0-0.2) k/uL Sodium 138 (137-145) mmol/L Potassium 4.3 (3.5-5.1) mmol/L Chloride 103 (98-107) mmol/L Carbon Dioxide 26 (22-30) mmol/L Anion Gap 9 mmol/L BUN 25 H (7-17) mg/dL Creatinine 0.69 (0.52-1.04) mg/dL Est GFR (CKD-EPI)AfAm >90 (>60 ml/min/1.73 sqM) Est GFR (CKD-EPI)NonAf >90 (>60 ml/min/1.73 sqM) Glucose 271 H (74-99) mg/dL Calcium 9.9 (8.4-10.2) mg/dL Total Bilirubin 0.4 (0.2-1.3) mg/dL AST 30 (14-36) U/L ALT 37 H (4-34) U/L Alkaline Phosphatase 104 (38-126) U/L Total Protein 7.5 (6.3-8.2) g/dL Albumin 4.4 (3.5-5.0) g/dL Urine Color Yellow Urine Appearance Clear (Clear) Urine pH 6.0 (5.0-8.0) Ur Specific [place] 1.029 (1.001-1.035) Urine Protein Negative (Negative) Urine Glucose (UA) 3+ H (Negative) Urine Ketones Negative (Negative) Urine Blood Negative (Negative) Urine Nitrite Negative (Negative) Urine Bilirubin Negative (Negative) Urine Urobilinogen <2.0 (<2.0) mg/dL Ur Leukocyte Esterase Negative (Negative) Disposition Clinical Impression: Lumbar back pain Disposition: HOME SELF-CARE Condition: Stable Instructions (If sedation given, give patient instructions): Acute Low Back Pain (ED) Additional Instructions: Follow-up with primary care provider and orthopedic consult tomorrow. Use muscle relaxers and anti-inflammatories as needed for discomfort. Return to ER if condition worsens in any way. Prescriptions: Cyclobenzaprine [Flexeril] 1 - 2 tab PO TID #20 tablet Is patient prescribed a controlled substance at d/c from ED?: No Referrals: Jesse Baker DO [Primary Care Provider] - 1-2 days Adelso Patterson MD [STAFF PHYSICIAN] - 1-2 days
[2019-10-19 06:17] VITALS: BP 144/85; PULSE 52; RESP 18
== END 2019-10-19 06:17 | disposition home or self-care (01) ==
LOC: EC 01:06
DX: S39.012A Strain of muscle, fascia and tendon of lower back, initial encounter (principal); I10 Essential (primary) hypertension; D72.829 Elevated white blood cell count, unspecified; K76.89 Other specified diseases of liver; M51.24 Other intervertebral disc displacement, thoracic region; E11.9 Type 2 diabetes mellitus without complications; E07.9 Disorder of thyroid, unspecified; Z87.891 Personal history of nicotine dependence; Z79.84 Long term (current) use of oral hypoglycemic drugs; Z79.890 Hormone replacement therapy; Z79.899 Other long term (current) drug therapy; Z85.43 Personal history of malignant neoplasm of ovary; Z85.038 Personal history of other malignant neoplasm of large intestine; Z85.118 Personal history of other malignant neoplasm of bronchus and lung; Z90.722 Acquired absence of ovaries, bilateral; Z90.49 Acquired absence of other specified parts of digestive tract; Z90.2 Acquired absence of lung [part of]; X50.1XXA Overexertion from prolonged static or awkward postures, initial encounter
CPT/HCPCS: 36415; 80053; 85025; 81003; 74176; 99284; 96374; 96375 ×2; 96361; J3360; J1885; J1170

== ENCOUNTER → 2019-10-25 | Outpatient (CLI) | payer OTHER | END | disposition home or self-care (01) | LOC: RADMRIMAIN 19:37 | PROVIDERS: ATTEND Nurse Practitioner Family | DX: Z53.9 Procedure and treatment not carried out, unspecified reason (principal) ==

== ENCOUNTER 2019-11-01 20:57 | Emergency (ER) | payer OTHER ==
[2019-11-01] MEDS ORDERED: DIAZEPAM 5 MG TAB PO STA (22:11)
[2019-11-01] MEDS ORDERED: KETOROLAC 30 MG/ML 1 ML VIAL IM STA (22:11)
--- NOTE | 2019-11-01 23:04 | ED ---
Back Pain [facility] - General Chief Complaint: Back Pain/Injury Stated Complaint: Back pain Time Seen by Provider: 11/01/19 21:10 Source: patient Limitations: no limitations - History of Present Illness Initial Comments: The patient is a 49-year-old female with past medical history of diabetes, ovarian cancer and thyroid disease presents emergency Department with reported back pain. This is the patient's third visit to the ER for the same complaint. She states she was originally at work when she ended up twisting and felt a pop in her low back. She reports to muscle spasms in the lumbar region which have been present since the . She originally came into the emergency department and had a lumbar x-ray as well as an abdominal ultrasound performed. Both of these tests were negative. She was discharged home with a prescription for [employer] own. She followed up in her primary care office. At this time they did provide her with anti-inflammatories. She and return to the ER on the . At that time they completed a CT of the patient's abdomen and pelvis looking for possible renal stone. He did see a herniated disc imaging at this time. The patient was discharged home with Flexeril. States that she took all the medications as directed and she is now out of medications. She states didn't really help her symptoms. She did have exacerbation of her pain today. States that she's been unable to work because it hurt so bad. She denies any radicular pain into lower extremities. Denies saddle anesthesia or bowel or bladder incontinence. No fevers or chills. Denies a history of IV drug use. Denies any weakness in her lower extremity. Has been able to ambulate without difficulty. States her pain is worse when she stands up straight. She does have an appointment with Dr. Bean tomorrow and is presenting to the emergency department for pain control tonight. She denies a concern for . There are no other alleviating, precipitating modifying factors - Related Data Home Medications Medication Instructions Recorded Confirmed Levothyroxine Sodium [Synthroid] 25 mcg PO DAILY 08/15/17 02/01/19 Escitalopram [Lexapro] 20 mg PO DAILY 02/01/19 02/01/19 [place]-3 Fatty Acids/Fish Oil [Fish 1 cap PO DAILY 02/01/19 02/01/19 Oil 1,000 mg Softgel] metFORMIN HCL [Glucophage] 500 mg PO BID 02/01/19 02/01/19 Previous Rx's Medication Instructions Recorded Ondansetron Odt [Zofran Odt] 4 mg PO Q8HR PRN #12 tab 02/01/19 predniSONE [Deltasone] 20 mg PO BID #10 tab 10/15/19 Cyclobenzaprine [Flexeril] 1 - 2 tab PO TID #20 tablet 10/19/19 Diazepam [Valium] 5 mg PO Q8HR PRN 3 Days #9 tab 11/01/19 Ketorolac [Toradol] 10 mg PO Q8HR #15 tab 11/01/19 Allergies Allergy/AdvReac Type Severity Reaction Status Date / Time No Known Allergies Allergy Verified 10/19/19 01:26 Review of Systems ROS Statement: Those systems with pertinent positive or pertinent negative responses have been documented in the HPI. ROS Other: All systems not noted in ROS Statement are negative. Past Medical History Past Medical History: Cancer, Diabetes Mellitus, Thyroid Disorder Additional Past Medical History / Comment(s): DX. AT AGE 39 WITH OVARIAN CANCER which progressed to colon and LEFT LUNG, Possible sleep apnea, colon polyps. History of Any Multi-Drug Resistant Organisms: None Reported Past Surgical History: Appendectomy, Bowel Resection, Tubal Ligation Additional Past Surgical History / Comment(s): BILATERAL CATARACTS, BILATERAL OOPHERECTOMY,LOWER LOBE LEFT LUNG REMOVED, COLONOSCOPY. Past Anesthesia/Blood Transfusion Reactions: No Reported Reaction Past Psychological History: No Psychological Hx Reported Smoking Status: Former smoker Past Alcohol Use History: None Reported Past Drug Use History: None Reported - Past Family History Mother Family Medical History: Coronary Artery Disease (CAD), Diabetes Mellitus General Exam Limitations: no limitations General appearance: alert, in no apparent distress Head exam: Present: atraumatic, normocephalic, normal inspection Neck exam: Present: normal inspection. Absent: tenderness, meningismus, lymphadenopathy Respiratory exam: Present: normal lung sounds bilaterally. Absent: respiratory distress, wheezes, rales, rhonchi, stridor Cardiovascular Exam: Present: regular rate, normal rhythm, normal heart sounds. Absent: systolic murmur, diastolic murmur, rubs, gallop, clicks GI/Abdominal exam: Present: soft, normal bowel sounds. Absent: distended, tenderness, guarding, rebound, rigid Rectal exam: Present: deferred Extremities exam: Present: normal inspection, full ROM, normal capillary refill. Absent: tenderness, pedal edema, joint swelling, calf tenderness Back exam: Present: tenderness, muscle spasm, paraspinal tenderness. Absent: vertebral tenderness (L2-L5 tenderness. 5/5 muscle stength in her hip flexors, knee extensors, ankle and great toe dorsiflexors and foot plantar flexors) Course Vital Signs 11/01/19 11/01/19 21:09 23:17 Temperature 98.0 F 98.9 F Pulse Rate 65 101 H Respiratory 18 16 Rate Blood Pressure 137/79 148/88 O2 Sat by Pulse 98 98 Oximetry Medical Decision Making - Medical Decision Making Upon arrival the patient was placed into room 11. A thorough history and physical exam was performed. I did review the patient's previous testing results. She states that she did have an MRI performed yesterday which demonstrated a herniated disc. She does have an appointment with Dr. Bean tomorrow. She states she is just looking for pain control tonight. She is out of the muscle relaxer. The patient was given oral Valium and a dose of Toradol. I did reevaluate her and she states she has had marked improvement in her symptoms. She is able to sit up in bed. She is actually appreciative. I discussed diagnosis, differential and treatment options. The patient does not demonstrate any signs of cauda equina. At this time she'll be discharged home with prescriptions of Valium and Toradol. She is instructed as to the side effects profile. She's not work or drive while taking the medications. She hasn't been with Dr. Bean tomorrow at 10:15. Return to the emergency room for any new or worsening symptoms. The patient was in agreement treatment plan and discharge ambulatory Disposition Clinical Impression: Lumbar back pain Disposition: HOME SELF-CARE Condition: Stable Instructions (If sedation given, give patient instructions): Acute Low Back Pain (ED) Additional Instructions: Please follow up with Dr. Bean at your scheduled appointment tomorrow. Return to the emergency department for any new worsening symptoms Prescriptions: Ketorolac [Toradol] 10 mg PO Q8HR #15 tab Diazepam [Valium] 5 mg PO Q8HR PRN 3 Days #9 tab PRN Reason: Pain Is patient prescribed a controlled substance at d/c from ED?: Yes When asked, does pt state using other controlled substances?: No If prescribed controlled substance>3 days was MAPS reviewed?: Prescribed <3 Days If opioid is for acute pain is fill amount 7 days or less?: No If Rx opioid, was Start Talking consent form obtained?: No Referrals: Jesse Baker DO [Primary Care Provider] - 1-2 days Mandie Bean DO [Doctor of Osteopathic Medicine] - 1-2 days Time of Disposition: 23:04
[2019-11-01 23:18] VITALS: BP 148/88; PULSE 101; RESP 16; TEMP 98.9
== END 2019-11-01 23:21 | disposition home or self-care (01) ==
LOC: EC 20:57
DX: M51.26 Other intervertebral disc displacement, lumbar region (principal); M62.838 Other muscle spasm; E07.9 Disorder of thyroid, unspecified; E11.9 Type 2 diabetes mellitus without complications; Z85.43 Personal history of malignant neoplasm of ovary; Z79.84 Long term (current) use of oral hypoglycemic drugs; Z79.890 Hormone replacement therapy; Z79.899 Other long term (current) drug therapy; Z87.891 Personal history of nicotine dependence
CPT/HCPCS: 96372; 99283; J1885

== ENCOUNTER → 2019-12-14 | Outpatient (CLI) | payer OTHER ==
--- NOTE | 2019-12-15 11:23 | MM ---
Reason for exam: screening (asymptomatic). Last mammogram was performed 1 year and 3 months ago. History: Patient is postmenopausal, has history of other cancer at age 41, has history of colon cancer at age 39, and is nulliparous. Family history of breast cancer in maternal aunt at age 45. Physical Findings: A clinical breast exam by your physician is recommended on an annual basis and results should be correlated with mammographic findings. MG 3D Screening Mammo W/Cad Bilateral CC and MLO view(s) were taken. Prior study comparison: September 28, 2018, bilateral MG 3d screening mammo w/cad. July 31, 2017, bilateral MG screening mammo w CAD. There are scattered fibroglandular densities. There is a left 2-3mm upper central far posterior depth new focal asymmetry in the retromammary fat plane. No suspicious abnormality in the right breast. ASSESSMENT: Incomplete: need additional imaging evaluation, BI-RAD 0 RECOMMENDATION: Special view mammogram of the left breast. If lesion persists on supplemental views, image directed ultrasound is recommended. [facility] will attempt to contact patient to return for supplemental views and ultrasound if indicated.
== END | disposition home or self-care (01) ==
LOC: RADMAMWWP 07:35
PROVIDERS: ATTEND Family Medicine
DX: Z12.31 Encounter for screening mammogram for malignant neoplasm of breast (principal)
CPT/HCPCS: 77063; 77067

== ENCOUNTER → 2019-12-16 | Outpatient (CLI) | payer OTHER ==
--- NOTE | 2019-12-16 12:14 | MM ---
Reason for exam: additional evaluation requested from abnormal screening. Last mammogram was performed less than 1 month ago. History: Patient is postmenopausal, has history of other cancer at age 41, has history of colon cancer at age 39, and is nulliparous. Family history of breast cancer in maternal aunt at age 45. Physical Findings: Nurse did not find any significant physical abnormalities on exam. MG 3D Work Up W/Cad LT Spot compression CC, spot compression MLO, and ML view(s) were taken of the left breast. Prior study comparison: December 14, 2019, bilateral MG 3d screening mammo w/cad. September 28, 2018, bilateral MG 3d screening mammo w/cad. There are scattered fibroglandular densities. The previously seen abnormality resolves on additional views and appears as fibroglandular tissue compatible with summation. No suspicious abnormality. These results were verbally communicated with the patient and result sheet given to the patient on 12/16/19. ASSESSMENT: Negative, BI-RAD 1 RECOMMENDATION: Return to routine screening mammogram schedule for both breasts.
== END | disposition home or self-care (01) ==
LOC: RADMAMWWP 10:19
PROVIDERS: ATTEND Family Medicine
DX: R92.8 Other abnormal and inconclusive findings on diagnostic imaging of breast (principal)
CPT/HCPCS: 77061; 77065

== ENCOUNTER 2020-08-24 07:07 | Day surgery (SDC) | payer OTHER ==
[2020-08-22 11:17] VITALS: BMI 50.5
[~2020-08-24 07:07] MED LIST changes: -LACTATED RINGERS 1,000 ML IV ONE; +LACTATED RINGERS 1,000 ML IV SCH; +LIDOCAINE 1% (10MG/ML) FOR IV START INTRADERMA PRN; -LIDOCAINE 1% 20 ML VIAL (10MG/ML) FOR IV START INTRADERMA PRN
[2020-08-24 07:39] LABS: Glucose,Whole Blood 185 mg/dL (75-99)
[2020-08-24] MEDS ORDERED: PROPOFOL 10 MG/ML 20 ML VIAL IV ONE (07:40)
--- NOTE | 2020-08-24 07:43 | P.GSHP ---
History of Present Illness H&P Date: 08/24/20 Chief Complaint: Colon cancer This a 50-year-old female who presents today for colonoscopy. Patient previous history of colon cancer patient underwent right colectomy approximately 12 years ago. Past Medical History Past Medical History: Cancer, Diabetes Mellitus, GERD/Reflux, Thyroid Disorder Additional Past Medical History / Comment(s): colon cancer that spread to ovary and lung History of Any Multi-Drug Resistant Organisms: None Reported Past Surgical History: Bowel Resection, Tubal Ligation Additional Past Surgical History / Comment(s): BILATERAL CATARACTS, BILATERAL OOPHERECTOMY,LOWER LOBE LEFT LUNG REMOVED, COLONOSCOPY. Past Anesthesia/Blood Transfusion Reactions: No Reported Reaction Smoking Status: Former smoker - Past Family History Father Family Medical History: Cancer Sister(s) Family Medical History: Cancer Mother Family Medical History: Deep Vein Thrombosis (DVT), Pulmonary Embolus Medications and Allergies Home Medications Medication Instructions Recorded Confirmed Type metFORMIN HCL [Glucophage] 500 mg PO BID 02/01/19 08/24/20 History Naproxen Sodium [Aleve] 220 mg PO Q12HR PRN 08/22/20 08/24/20 History Allergies Allergy/AdvReac Type Severity Reaction Status Date / Time No Known Allergies Allergy Verified 08/24/20 07:29 Surgical - Exam - General well developed, well nourished, no distress - Eyes PERRL - ENT normal pinna - Neck no masses - Respiratory normal expansion, normal respiratory effort - Cardiovascular Rhythm: regular - Abdomen Abdomen: soft, non tender Results - Labs Abnormal Lab Results - Last 24 Hours (Table) 08/24/20 Range/Units 07:37 POC Glucose (mg/dL) 185 H (75-99) mg/dL Assessment and Plan Assessment: History of colon cancer performed colonoscopy.
[2020-08-24 07:46] VITALS: TEMP 98
--- NOTE | 2020-08-24 07:52 | P.OP ---
Date of Procedure: 08/24/20 Preoperative Diagnosis: History of colon cancer Postoperative Diagnosis: Normal colonoscopy status post sigmoid resection Procedure(s) Performed: Colonoscopy Anesthesia: MAC Surgeon: Edison Blanco Pathology: none sent Condition: stable Disposition: PACU Description of Procedure: Patient's placed on the endoscopy table in the lateral position. She received IV sedation. Digital rectal exam was performed which revealed no abnormalities. The flexible colonoscope was then placed patient anus passed throughout the entire colon. Ileocecal valve visualized. The cecum, ascending and transverse colon appeared normal. The descending colon appeared normal. The patient appears sigmoid resection. The colorectal anastomosis visualized. This appeared normal. There is no evidence of any recurrent tumor. The scope was brought back the rectum and this was normal. Scope was withdrawn for patient.
[2020-08-24 08:34] VITALS: BP 141/80; PULSE 76; RESP 16
== END 2020-08-24 08:48 | disposition home or self-care (01) ==
LOC: ORWHC2ENDO 07:07
PROVIDERS: ATTEND Surgery
DX: Z12.11 Encounter for screening for malignant neoplasm of colon (principal); Z85.038 Personal history of other malignant neoplasm of large intestine; Z98.0 Intestinal bypass and anastomosis status; E11.9 Type 2 diabetes mellitus without complications; K21.9 Gastro-esophageal reflux disease without esophagitis; E07.9 Disorder of thyroid, unspecified; Z85.118 Personal history of other malignant neoplasm of bronchus and lung; Z85.3 Personal history of malignant neoplasm of breast; Z85.43 Personal history of malignant neoplasm of ovary; Z98.42 Cataract extraction status, left eye; Z98.41 Cataract extraction status, right eye; Z90.722 Acquired absence of ovaries, bilateral; Z98.51 Tubal ligation status; Z90.2 Acquired absence of lung [part of]; Z87.891 Personal history of nicotine dependence; Z80.9 Family history of malignant neoplasm, unspecified; Z82.49 Family history of ischemic heart disease and other diseases of the circulatory system; Z83.3 Family history of diabetes mellitus; Z79.84 Long term (current) use of oral hypoglycemic drugs; Z79.1 Long term (current) use of non-steroidal anti-inflammatories (NSAID); Z90.710 Acquired absence of both cervix and uterus
CPT/HCPCS: G0105; J2704

== ENCOUNTER → 2020-12-28 | Outpatient (CLI) | payer OTHER | END | disposition home or self-care (01) | LOC: LABWHC1 16:27 | PROVIDERS: ATTEND Nurse Practitioner Family | DX: U07.1 COVID-19 (principal) | CPT/HCPCS: U0003; C9803; U0005 ==

== ENCOUNTER → 2021-07-10 | Outpatient (CLI) | payer OTHER ==
--- NOTE | 2021-07-10 12:17 | XR ---
EXAMINATION TYPE: XR shoulder complete RT DATE OF EXAM: 07/10/2021 COMPARISON: NONE HISTORY: Pain TECHNIQUE: Shoulder examined in 3 projections FINDINGS: The humeral head articulates with the glenoid. The acromio-clavicular junction is normal. No acute fractures or dislocations are evident. A follow up study can be performed 7-10 days from acute trauma for continued pain. IMPRESSION: 1. Normal 3 view right Shoulder
== END | disposition home or self-care (01) ==
LOC: RADXRMAIN 11:48
PROVIDERS: ATTEND Family Medicine
DX: M25.511 Pain in right shoulder (principal)

== ENCOUNTER → 2022-01-19 | Outpatient (CLI) | payer OTHER | END | disposition home or self-care (01) | LOC: RADMRIMAIN 11:22 | PROVIDERS: ATTEND Family Medicine | DX: Z53.9 Procedure and treatment not carried out, unspecified reason (principal) ==

== ENCOUNTER → 2022-09-09 | Outpatient (CLI) | payer OTHER ==
--- NOTE | 2022-09-09 11:34 | XR ---
EXAMINATION TYPE: XR chest 2V DATE OF EXAM: 09/09/2022 11:12 AM COMPARISON: Chest radiographs from 03/11/2019 TECHNIQUE: XR chest 2V Frontal and lateral views of the chest. CLINICAL INDICATION:Female, 52 years old with history of R05.9 COUGH; FINDINGS: Lungs/Pleura: There is no evidence of pleural effusion, focal consolidation, or pneumothorax. Pulmonary vascularity: Unremarkable. Heart/mediastinum: Cardiomediastinal silhouette is unremarkable. Musculoskeletal: No acute osseous pathology. IMPRESSION: No acute cardiopulmonary disease/process.
== END | disposition home or self-care (01) ==
LOC: RADXRMAIN 11:03
PROVIDERS: ATTEND Family Medicine
DX: R05.9 Cough, unspecified (principal)
CPT/HCPCS: 71046

== ENCOUNTER → 2023-03-14 | Outpatient (CLI) | payer OTHER ==
--- NOTE | 2023-03-14 10:50 | XR ---
EXAMINATION TYPE: XR knee complete LT DATE OF EXAM: 03/14/2023 10:24 AM INDICATION: Patient age:Female; 53 years old; Reason for study: M25.562 LEFT KNEE PAIN; COMPARISON: None. TECHNIQUE: The left knee(s) was examined in Frontal, lateral and oblique projections. FINDINGS: No evidence of any acute osseous pathology, soft tissue swelling, or joint effusion is no travis. Tricompartmental osteophyte formation involving the femoral condyles, tibial plateau and patella. Mi ld joint space narrowing. IMPRESSION: 1. No acute osseous pathology. 2. Moderate tricompartmental osteoarthritic changes worse in the patellofemoral joint.
== END | disposition home or self-care (01) ==
LOC: RADXRMAIN 10:05
PROVIDERS: ATTEND Family Medicine
DX: M17.12 Unilateral primary osteoarthritis, left knee (principal)

== ENCOUNTER 2024-05-16 02:45 | Emergency (ER) | payer OTHER ==
[2024-05-16] MEDS ORDERED: HYDROmorphone 1 MG/ML 1 ML SYRINGE ONE (04:12)
[2024-05-16] MEDS ORDERED: SODIUM CHLORIDE 0.9% 1,000 ML BAG ONE (04:15)
--- NOTE | 2024-06-16 15:38 | CT ---
EXAM: CT Abdomen and Pelvis Without Intravenous Contrast CLINICAL HISTORY: abdominal pain all over hx of ovary removal, bowel resection TECHNIQUE: Axial computed tomography images of the abdomen and pelvis without intravenous contrast. CTDI is 22.5 mGy and DLP is 1332 mGy-cm. This CT exam was performed using one or more of the following dose reduction techniques: automated exposure control, adjustment of the mA and/or kV according to patient size, and/or use of iterative reconstruction technique. COMPARISON: No relevant prior studies available. FINDINGS: Lung bases:Unremarkable. No mass. No consolidation. ABDOMEN: Liver:Hepatic steatosis. Gallbladder and bile ducts:Cholelithiasis. No ductal dilation. Pancreas:Unremarkable. No ductal dilation. Spleen:Unremarkable. No splenomegaly. Adrenals:Unremarkable. No mass. Kidneys and ureters:Unremarkable. No obstructing stones. No hydronephrosis. Stomach and bowel: Partial sigmoidectomy. Diverticulosis, without acute diverticulitis. No small bowel obstruction. No free intraperitoneal air. PELVIS: Appendix:No acute appendicitis. Bladder:Unremarkable. No stones. Reproductive:Unremarkable as visualized. ABDOMEN and PELVIS: Intraperitoneal space:Unremarkable. No free air. No significant fluid collection. Bones/joints:Degenerative changes of the spine. No acute fracture. No dislocation. Soft tissues:Unremarkable. Vasculature:Atherosclerotic changes of the aorta. No abdominal aortic aneurysm. Lymph nodes:Unremarkable. No enlarged lymph nodes. IMPRESSION: Partial sigmoidectomy. Radiologist: Ashok Horvath MD Electronically Signed: 05/16/24 05:43 Study ready at 05:27 and initial results transmitted at 05:43 Results also transmitted to Film Room, Film Room @ [phone] (Fax) [facility]
== END 2024-05-16 06:15 | disposition home or self-care (01) ==
LOC: EC 02:45
DX: R10.9 Unspecified abdominal pain (principal)
CPT/HCPCS: 96361 ×2; 96374 ×2; 99284 ×2; 74176; J1170

== ENCOUNTER → 2024-05-31 | Day surgery (SDC) | payer OTHER ==
[~2024-05-31] MED LIST changes: +ACETAMINOPHEN TAB 500 MG TAB PO PRN; +GLYCOPYRROLATE 0.2 MG/ML 2 ML VIAL ONE; +HEPARIN SODIUM,PORCINE 5,000 UNIT/ML 1 ML VIAL SQ PRN; +KETOROLAC 15 MG/ML 1 ML VIAL ONE; -LACTATED RINGERS 1,000 ML IV SCH; -LIDOCAINE 1% (10MG/ML) FOR IV START INTRADERMA PRN; +LIDOCAINE 1% INJ 10MG/ML (20 ML MDV) ONE; +MIDAZOLAM 2 MG/2 ML VIAL ONE; +NEOSTIGMINE 1 MG/ML 10 ML VIAL ONE; +PROPOFOL 10 MG/ML 20 ML VIAL IV ONE; +ROCURONIUM 10 MG/ML (5 ML VIAL) IV ONE; +SUCCINYLCHOLINE CHLORIDE 200 MG/10 ML VIAL IV ONE; +SUGAMMADEX SODIUM 200 MG/2 ML SDV IV ONE; +fentaNYL (PF) 50 MCG/ML 2 ML AMP ONE
[2024-05-31] MEDS: DEXAMETHASONE SOD PHOSPHATE 4 MG/ML 1 ML VIAL IM STA (07:08)
[2024-05-31] MEDS: ONDANSETRON 4 MG/2 ML VIAL IVP ONE (07:09)
[2024-05-31] MEDS: DEXAMETHASONE SOD PHOSPHATE 4 MG/ML 1 ML VIAL IVP ONE (07:09)
[2024-05-31] MEDS: LACTATED RINGERS 1,000 ML BAG IV STA (07:10)
[2024-05-31] MEDS: HEPARIN SODIUM,PORCINE 5,000 UNIT/ML 1 ML VIAL SQ ONE (07:15)
[2024-05-31] MEDS: IV FLUID CONTINUATION 1,000 ML IV ONE (07:16)
[2024-05-31 07:19] LABS: Glucose,Whole Blood 171 mg/dL (70-110)
[2024-05-31] MEDS: ACETAMINOPHEN IV (For NPO) 1,000 MG in EMPTY BAG 1 BAG IVPB ONE (07:23)
[2024-05-31] MEDS: LIDOCAINE 1%-EPI 1:100,000 20 ML VIAL SQ ONE (07:57)
[2024-05-31] MEDS: LACTATED RINGERS 1,000 ML IV ONE ×2 (08:05→10:23)
--- NOTE | 2024-05-31 08:58 | P.OP ---
Date of Procedure: 05/31/24 Preoperative Diagnosis: Cholecystitis Postoperative Diagnosis: Cholecystitis Procedure(s) Performed: Laparoscopic cholecystectomy Anesthesia: ITALO Surgeon: Edison Blanco Estimated Blood Loss (ml): 5 Pathology: other (Gallbladder) Condition: stable Disposition: PACU Description of Procedure: The patient was placed on the operating table. The patient received a general endotracheal tube anesthesia. The patients abdomen was prepped and draped in the usual sterile fashion. Through an infraumbilical stab incision, the fascia of the anterior abdominal wall was grasped with a pair of Kochers and then the Veress needle was placed in the peritoneal cavity. Position of the Veress needle was confirmed with positive drop test. The abdomen was then insufflated. After adequate insufflation, the 10 mm trocar was placed in the peritoneal cavity. Following this the laparoscope was placed in the peritoneal cavity. The patient was placed in the head-up, right side up position and then a 5 mm trocar was placed in the right lateral and right subcostal position under direct visualization. A 8 mm trocar was placed in the epigastric position. The gallbladder was grasped in the fundus and infundibulum. Traction on the gallbladder was placed in the lateral and the cephalad positions. The triangle of Calot was visualized.. The cystic duct was bluntly dissected until the union of the cystic duct and common bile duct was seen. A critical view of safety was achieved. The cystic duct was then divided and sealed with the Harmonic scissors. A PDS Endoloop was then placed throughout the cystic duct stump. The cystic artery divided and sealed with the Harmonic scissors. The gallbladder was then removed from the liver bed using Harmonic scissors. The gallbladder was then extracted through the epigastric port site. Operative field was checked for any bleeding spots and Harmonic scissors was used to coagulate the liver bed. The abdomen was irrigated. The trocars were removed. The skin was closed using interrupted 3-0 Vicryl suture. Dermabond dressing were applied. The patient tolerated the procedure well.
[2024-05-31 09:14] VITALS: TEMP 97
[2024-05-31] MEDS: HYDROmorphone 0.5 MG/0.5 ML SYRINGE IVP PRN (09:36)
[2024-05-31] MEDS: droPERidol 5 MG/2 ML VIAL IVP ONE (10:06)
[2024-05-31 12:05] VITALS: BP 128/68; PULSE 69; RESP 6
== END ==
LOC: OR 06:17
PROVIDERS: ATTEND Surgery
DX: K81.1 Chronic cholecystitis
CPT/HCPCS: 88304

== ENCOUNTER → 2024-08-04 | Outpatient (CLI) | payer OTHER ==
--- NOTE | 2024-08-04 15:30 | MM ---
Reason for Exam: Screening (asymptomatic). Last mammogram was performed 4 year(s) and 7 month(s) ago. Patient History: Menarche at age 10. Patient has no children. Left ovary removed at age 40. Right ovary removed at age 40. Postmenopausal. Other cancer, age 41. Colorectal cancer, age 39. Maternal aunt had breast cancer, age 45. Risk Values: Kim 5 year model risk: 1.3%. NCI Lifetime model risk: 10.3%. Prior Study Comparison: 09/28/2018 Bilateral Screening Mammogram, [facility]. 12/14/2019 Bilateral Screening Mammogram, [facility]. 12/16/2019 Left Diagnostic Mammogram, [facility]. Tissue Density: The breasts are almost entirely fatty. Findings: Analyzed By CAD. Right breast: There is no suspicious group of microcalcifications or new suspicious mass. Left breast: There is no suspicious group of microcalcifications or new suspicious mass. Overall Assessment: Negative, BI-RAD 1 Management: Screening Mammogram of both breasts in [address] [facility] will attempt to contact patient to return for supplemental views and ultrasound if indicated. Patient should continue monthly self-breast exams. A clinical breast exam by your physician is recommended on an annual basis. This exam should not preclude additional follow-up of suspicious palpable abnormalities. Note on Kim scores and lifetime risk: 1. A Kim score greater than 3% is considered moderate risk. If this is the case, consider specialist referral to assess eligibility for a risk reducing agent. 2. If overall lifetime risk for the development of breast cancer is 20% or higher, the patient may qualify for future screening with alternating mammogram and breast MRI. [facility], , 08/04/2024 3:26 PM. Electronically signed and approved by: Jake George DO
== END | disposition home or self-care (01) ==
LOC: RADMAMWWP 06:59
PROVIDERS: ATTEND Family Medicine
CPT/HCPCS: 77063; 77067

== ENCOUNTER → 2024-08-04 | Outpatient (CLI) | payer OTHER ==
[2024-08-04 16:09] LABS: HCT 42.6 % (37.2-46.3); HGB 13.8 g/dL (12.0-15.0); MCH 28.3 pg (27.0-32.0); MCHC 32.4 g/dL (32.0-37.0); MCV 87.5 FL (80.0-97.0); Mean Platelet Volume 9.7 FL (9.5-12.2); NRBC Per 100 WBC 0 X 10*3/uL (0.00-0.01); Platelet Count 352 X 10*3/uL (140-440); RBC 4.87 X 10*6/uL (4.10-5.20); RDW 13.2 % (11.5-14.5); WBC 12.95 X 10*3/uL (4.50-10.00)
== END | disposition home or self-care (01) ==
LOC: LABWHC1 10:49
PROVIDERS: ATTEND Family Medicine
DX: D72.829 Elevated white blood cell count, unspecified (principal)
CPT/HCPCS: 36415; 85027